=== PATIENT | male | born 1990 | race Caucasian/White ===

== ENCOUNTER 2016-08-11 11:29 | Emergency (ER) | payer MEDICAID ==
[2016-08-11 11:32] VITALS: BP 135/80
[2016-08-11] MEDS ORDERED: Tetan/Diph/Pertus SYR(Tdap)* 0.5 ML SYR(BOOSTRIX) use SYR IM ONE (12:23)
[2016-08-11] MEDS ORDERED: Acetaminophen TAB* 325 MG PO ONE (12:23)
[2016-08-11] MEDS ORDERED: Ondansetron ODT TAB* 4 MG PO ONE (12:23)
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
--- NOTE | 2016-08-11 12:43 | RAD ---
HISTORY: Trauma COMPARISONS: None TECHNIQUE: Multiple contiguous axial CT scans were obtained of the head without intravenous contrast. FINDINGS: HEMORRHAGE/INFARCT: There is no hemorrhage or acute infarct. MASSES/SHIFT: There is no mass or shift. EXTRA-AXIAL SPACES: There are no extra-axial fluid collections. SULCI AND VENTRICLES: The sulci and ventricles are normal in size and position for the patient's stated age. CEREBRUM: There are no focal parenchymal abnormalities. BRAINSTEM: There are no focal parenchymal abnormalities. CEREBELLUM: There are no focal parenchymal abnormalities. VESSELS: The vessels are grossly normal. PARANASAL SINUSES: The paranasal sinuses are clear. ORBITS: The orbits are unremarkable. BONES AND SOFT TISSUE: No bone or soft tissue abnormalities are noted. OTHER: None IMPRESSION: NO ACUTE INTRACRANIAL PATHOLOGY.
--- NOTE | 2016-08-11 12:46 | RAD ---
HISTORY: Facial trauma COMPARISONS: None TECHNIQUE: Multiple contiguous axial CT scans were obtained of the face without intravenous contrast, with coronal and sagittal multiplanar reformations. FINDINGS: The study is limited by patient motion artifact. BONES: There is no displaced fracture or dislocation. The orbital rim is intact. The zygomatic arch is intact. The pterygoid plates are intact. ORBITS: The globes are round. The optic nerves are symmetric. The extraocular musculature is normal. There is no post septal or intraconal inflammatory change. There is no retrobulbar hematoma. PARANASAL SINUSES: The septum is slightly to the left with left-sided spurring. There is extensive mucosal maxillary sinuses, ethmoid air cells, and sphenoid sinus. BRAIN AND SOFT TISSUE: Unremarkable. OTHER: None. IMPRESSION: NO FACIAL FRACTURE. EXTENSIVE SINUS MUCOSAL INFLAMMATORY DISEASE, WITHOUT AIR-FLUID LEVEL TO SUGGEST ACUTE SINUSITIS.
--- NOTE | 2016-08-11 13:24 | RAD ---
HISTORY: Left thumb injury COMPARISONS: None VIEWS: 3, Frontal, lateral, and oblique views of the first digit of the left hand FINDINGS: BONE DENSITY: Normal. BONES: There is no displaced fracture. JOINTS: There is no arthropathy. ALIGNMENT: There is no dislocation. SOFT TISSUES: Unremarkable. OTHER FINDINGS: None. IMPRESSION: NO ACUTE OSSEOUS INJURY. IF SYMPTOMS PERSIST, RECOMMEND REPEAT IMAGING.
== END 2016-08-11 13:35 | disposition home or self-care (01) ==
LOC: ED 11:29
DX: S01.01XA Laceration without foreign body of scalp, initial encounter (principal); S09.90XA Unspecified injury of head, initial encounter; M79.645 Pain in left finger(s); W22.8XXA Striking against or struck by other objects, initial encounter; Y93.9 Activity, unspecified; Y92.9 Unspecified place or not applicable; Y99.9 Unspecified external cause status
CPT/HCPCS: 12011; 70450; 70486; 90471; 90715; 99282; A9270-GY

== ENCOUNTER 2017-07-16 09:38 | Emergency (ER) | payer OTHER ==
[2017-07-16 11:25] LABS: ABS Basophils 0 10^3/ul (0-0.2); ABS Eosinophils 0.1 10^3/ul (0-0.6); ABS Lymphocytes 1.2 10^3/ul (1.0-4.8); ABS Monocytes 1.4 10^3/ul (0-0.8); ABS Neutrophils 11.6 10^3/ul (1.5-7.7); ABS Nucleated RBC 0 10^3/ul; Eosinophil % 0.6 % (0-6); Hematocrit 38 % (42-52); Hemoglobin 12.8 g/dl (14.0-18.0); Lymphocyte % 8.6 % (25-47); Mean Corpuscular HGB Conc 34 g/dl (31-36); Mean Corpuscular Hemoglobin 31 pg (27-31); Mean Corpuscular Volume 93 fL (80-94); Mean Platelet Volume 9.6 um3 (7.4-10.4); Nucleated Red Blood Cells % 0.2; Platelet Count 204 10^3/ul (150-450); Red Blood Count 4.11 10^6/ul (4.0-5.4); Red Cell Distribution Width 13 % (10.5-15); White Blood Count 14.4 10^3/ul (3.5-10.8)
[2017-07-16 11:48] LABS: EGFR Non-African American 147.1 (>60)
[2017-07-16] MEDS ORDERED: Lidocaine 1% INJ* 10 MG/ML 30 ML SDV INJ ONE (12:35)
[2017-07-16 13:22] VITALS: BP 119/76
--- NOTE | 2017-07-16 17:03 | ED ---
Skin Complaint - HPI Summary HPI Summary: Patient is a 26-year-old IV heroin drug user with a history of hepatitis C presenting to the ED with the chief complaint of abdominal abscess with scab and right temporal abscess with scab. He states the symptoms have been present 2 weeks but feels they may be worsening. There is some erythema and warmth around the abdominal skin scab. He states he has been draining some white purulent discharge to the area over the past several days and the area continues to scab over. He is concerned about syphilis. He has never had anything like this before. He denies any weakness, fatigue, headache. He denies any fevers, sweats, chills. He is otherwise feeling well. Last heroin use this morning. - History of Current Complaint Chief Complaint: EDRashSkinAbscess Time Seen by Provider: 07/16/17 09:58 Stated Complaint: RASH Hx Obtained From: Patient Onset/Duration: Started Weeks Ago Skin Exposure Onset/Duration: Weeks Ago Timing: Lasting Weeks Onset Severity: Moderate Current Severity: Moderate Pain Intensity: 1 Pain Scale Used: 0-10 Numeric Skin Location: Discrete - abdomen and R temporal area Character: Redness, Raised, Painful Aggravating Symptom(s): Nothing Alleviating Symptom(s): Nothing - Allergy/Home Medications Allergies/Adverse Reactions: Allergies Allergy/AdvReac Type Severity Reaction Status Date / Time MS Erythromycin Allergy Anaphylatic Verified 08/10/12 04:22 [Erythromycin] Shock MS Sulfa Drugs [Sulfa Drugs] Allergy Difficulty Verified 08/10/12 04:23 Breathing/Wheezing Home Medications: Home Medications Divalproex DR TAB(*) [Depakote DR TAB(*)] 250 mg PO DAILY 07/16/17 [History Confirmed 07/16/17] PMH/Surg Hx/FS Hx/Imm Hx Previously Healthy: Yes Endocrine/Hematology History: Denies: Hx Anticoagulant Therapy Respiratory History: Denies: Hx Asthma - Immunization History Hx Pertussis Vaccination: No Immunizations Up to Date: Unable to Obtain/Confirm Infectious Disease History: No Infectious Disease History: Denies: Traveled Outside the [place] in Last 30 Days - Family History Known Family History: Negative: Cardiac Disease - Social History Occupation: Unemployed Lives: Alone Alcohol Use: Rare Hx Substance Use: Yes Substance Use Type: Reports: Heroin, Marijuana Hx Tobacco Use: Yes Smoking Status (MU): Light Every Day Tobacco Smoker Review of Systems Constitutional: Negative Negative: Fever, Chills, Fatigue, Skin Diaphoresis Negative: Palpitations, Chest Pain Negative: Shortness Of Breath, Cough Negative: Abdominal Pain, Vomiting, Nausea Genitourinary: Negative Positive: no symptoms reported, see HPI Negative: Arthralgia, Myalgia Positive: Other - 2 abscess with scabs to the abdomena and R forehead Neurological: Negative All Other Systems Reviewed And Are Negative: Yes Physical Exam Triage Information Reviewed: Yes Vital Signs On Initial Exam: Initial Vitals Temp Pulse Resp BP Pulse Ox 99.5 F 103 20 136/83 100 07/16/17 09:45 07/16/17 09:45 07/16/17 09:45 07/16/17 09:45 07/16/17 09:45 Vital Signs Reviewed: Yes Appearance: Positive: Well-Appearing, No Pain Distress, Well-Nourished Skin: Positive: Warm, Skin Color Reflects Adequate Perfusion, Other - Left area of the mid abdomen with a 3 x 3 cm erythematous and warm area with a scab to the center without drainage; right forehead with a 2 x 1.5 cm erythematous without warm area with a scab to the Center without purulent drainage, swelling noted Head/Face: Positive: Normal Head/Face Inspection Eyes: Positive: EOMI, DAMIAN, Conjunctiva Clear Neck: Positive: Supple, No Lymphadenopathy Respiratory/Lung Sounds: Positive: Clear to Auscultation, Breath Sounds Present Cardiovascular: Positive: RRR, Pulses are Symmetrical in both Upper and Lower Extremities Musculoskeletal: Positive: Normal, Strength/ROM Intact Neurological: Positive: Speech Normal Psychiatric: Positive: Normal, Affect/Mood Appropriate AVPU Assessment: Alert Diagnostics - Vital Signs Vital Signs Temp Pulse Resp BP Pulse Ox 07/16/17 13:22 99.7 F 95 18 119/76 96 07/16/17 13:18 99 119/76 96 07/16/17 12:28 89 116/66 97 07/16/17 12:00 89 97 07/16/17 11:00 90 96 07/16/17 10:28 98 123/72 97 07/16/17 10:00 100 96 07/16/17 09:58 100 130/86 96 07/16/17 09:57 102 96 07/16/17 09:45 99.5 F 103 20 136/83 100 - Laboratory Lab Results: Lab Results 07/16/17 07/16/17 07/16/17 Range/Units 11:15 11:15 11:15 WBC 14.4 H (3.5-10.8) 10^3/ul RBC 4.11 (4.0-5.4) 10^6/ul Hgb 12.8 L (14.0-18.0) g/dl Hct 38 L (42-52) % MCV 93 (80-94) fL MCH 31 (27-31) pg MCHC 34 (31-36) g/dl RDW 13 (10.5-15) % Plt Count 204 (150-450) 10^3/ul MPV 9.6 (7.4-10.4) um3 Neut % (Auto) 80.7 (38-83) % Lymph % (Auto) 8.6 L (25-47) % [place] % (Auto) 9.8 H (0-7) % Eos % (Auto) 0.6 (0-6) % Baso % (Auto) 0.3 (0-2) % Absolute Neuts (auto) 11.6 H (1.5-7.7) 10^3/ul Absolute Lymphs (auto) 1.2 (1.0-4.8) 10^3/ul Absolute Monos (auto) 1.4 H (0-0.8) 10^3/ul Absolute Eos (auto) 0.1 (0-0.6) 10^3/ul Absolute Basos (auto) 0 (0-0.2) 10^3/ul Absolute Nucleated RBC 0 10^3/ul Nucleated RBC % 0.2 Sodium 133 L (139-145) mmol/L Potassium 4.2 (3.5-5.0) mmol/L Chloride 97 L (101-111) mmol/L Carbon Dioxide 28 (22-32) mmol/L Anion Gap 8 (2-11) mmol/L BUN 11 (6-24) mg/dL Creatinine 0.66 L (0.67-1.17) mg/dL Est GFR ( Amer) 189.1 (>60) Est GFR (Non-Af Amer) 147.1 (>60) BUN/Creatinine Ratio 16.7 (8-20) Glucose 96 (70-100) mg/dL Calcium 9.6 (8.6-10.3) mg/dL Total Bilirubin 0.90 (0.2-1.0) mg/dL AST 62 H (13-39) U/L ALT 154 H (7-52) U/L Alkaline Phosphatase 86 (34-104) U/L Total Protein 7.2 (6.4-8.9) g/dL Albumin 4.1 (3.2-5.2) g/dL Globulin 3.1 (2-4) g/dL Albumin/Globulin Ratio 1.3 (1-3) HIV 1&2 Antibody Nonreactive (Nonreactive) Result Diagrams: 07/16/17 11:15 07/16/17 11:15 Lab Statement: Any lab studies that have been ordered have been reviewed, and results considered in the medical decision making process. Course/Dx - Course Course Of Treatment: The patient is evaluated for 2 abscess scabs one to his abdomen and one to his right frontal temporal area of his forehead. Symptoms have been present 2 weeks. He denies fevers, sweats, chills. Labs obtained which show of 14.4 white blood cell count. Otherwise stable other than liver enzymes elevated, which are consistent with hepatitis C. He has never had an infection like this before. He denies injection into the sites. He states he only injects into his arms and there is no other lesions present. Track leblanc appear to his arms. The area to his abdomen is provided local anesthetic after thorough cleaning and small scab was taken to express underlying purulent fluid. This was sent to the lab. Patient is started on Bactrim for a possible MRSA contaminated due to IV drug use. Because he is otherwise stable and afebrile, patient will be discharged home with a follow-up in 2 days with me in the urgent care. He is okay with this plan at discharge and will return to the ED for any worsening or changing symptoms. If he is unable to get to the urgent care, he will come back to the ED. - Diagnoses Provider Diagnoses: Abscess Discharge - Sign-Out/Discharge Documenting (check all that apply): Discharge/Admit/Transfer - Discharge Plan Condition: Stable Disposition: HOME Prescriptions: Sulfamethox/Trimethoprim DS* [Bactrim DS 800/160 TAB*] 1 tab PO BID #14 tab MDD 2 Patient Education Materials: Abscess (ED) Referrals: No Primary Care Phys,NOPCP [Primary Care Provider] - Additional Instructions: Bactrim twice daily x 7 days For any worsening or changing symptoms - return to the ED You may also see me in [facility] on 07/18/17 for a wound re-check - Billing Disposition and Condition Condition: STABLE Disposition: HOME
== END 2017-07-16 13:23 | disposition home or self-care (01) ==
LOC: ED 09:38
DX: L02.01 Cutaneous abscess of face (principal); F17.210 Nicotine dependence, cigarettes, uncomplicated
CPT/HCPCS: 36415; 80053; 85025; 86592; 86703; 87070; 87077; 87184; 87186; 87205; 87640; 87641; 96374; 99282

== ENCOUNTER 2017-07-18 11:35 | Emergency (ER) | payer OTHER ==
[2017-07-18] MEDS ORDERED: cefTRIAXone(*) 1 GM in NS 0.9% 50 ML* 50 ML IVPB ONE (12:36)
[2017-07-18 12:57] VITALS: BP 131/74
[2017-07-18] MEDS ORDERED: cefTRIAXone VIAL(*) 1,000 MG VIAL IM ONE (12:57)
[2017-07-18] MEDS ORDERED: Lidocaine 1% MPF* 2 ML VIAL INJ ONE (13:06)
--- NOTE | 2017-07-18 14:13 | UC ---
Skin Complaint HPI - HPI Summary HPI Summary: Patient presents to the with a wound recheck. He states the Bactrim has been improving the erythema and warmth around the 2 wounds. He was seen in the ED 2 days ago by myself and was asked for him to return to the urgent care for me to recheck his wounds and give him results of his culture as well as his GC/ Chlamydia and syphilis. Continues to deny any fevers, sweats, chills. See note below from 2 days ago: Patient is a 26-year-old IV heroin drug user with a history of hepatitis C presenting to the ED with the chief complaint of abdominal abscess with scab and right temporal abscess with scab. He states the symptoms have been present 2 weeks but feels they may be worsening. There is some erythema and warmth around the abdominal skin scab. He states he has been draining some white purulent discharge to the area over the past several days and the area continues to scab over. He is concerned about syphilis. He has never had anything like this before. He denies any weakness, fatigue, headache. He denies any fevers, sweats, chills. He is otherwise feeling well. Last heroin use this morning. - History of Current Complaint Chief Complaint: UCSkin Time Seen by Provider: 07/18/17 11:42 Stated Complaint: SKIN ISSUE Hx Obtained From: Patient Onset/Duration: Gradual Onset Skin Exposure Onset/Duration: Weeks Ago Timing: Constant Onset Severity: Mild Current Severity: Mild Pain Intensity: 0 Pain Scale Used: 0-10 Numeric Aggravating Factor(s): Nothing Alleviating Factor(s): Nothing Associated Signs & Symptoms: Positive: Negative Related History: Alcohol/Drug intoxication - Allergy/Home Medications Allergies/Adverse Reactions: Allergies Allergy/AdvReac Type Severity Reaction Status Date / Time erythromycin base Allergy Hives Verified 07/18/17 12:58 [From Erythrocin] Review of Systems Constitutional: Negative Skin: Other - Continues to have a 0.7 cm lesion/ulcer to the left abdomen without surrounding erythema, scab to the right forehead without surrounding erythema appears to be improving since 2 days ago Respiratory: Negative Cardiovascular: Negative Motor: Negative Neurovascular: Negative Neurological: Negative Psychological: Negative Is Patient Immunocompromised?: No All Other Systems Reviewed And Are Negative: Yes PMH/Surg Hx/FS Hx/Imm Hx Previously Healthy: Yes Other History Of: Hepatitis C Negative For: Anticoagulant Therapy - Surgical History Surgical History: None - Family History Known Family History: Negative: Cardiac Disease - Social History Occupation: Unemployed Lives: Alone Alcohol Use: Rare Substance Use Type: Heroin, Marijuana Smoking Status (MU): Light Every Day Tobacco Smoker Physical Exam Triage Information Reviewed: Yes Appearance: Well-Appearing, No Pain Distress, Well-Nourished Vital Signs: Initial Vital Signs Temp 99 F 07/18/17 12:54 Pulse 85 07/18/17 12:54 Resp 15 07/18/17 12:54 BP 131/74 07/18/17 12:54 Pulse Ox 100 07/18/17 12:54 Vital Signs Reviewed: Yes Eye Exam: Normal Eyes: Positive: Conjunctiva Clear Neck exam: Normal Neck: Positive: Supple, Nontender, No Lymphadenopathy Respiratory Exam: Normal Respiratory: Positive: Chest non-tender, Lungs clear Cardiovascular Exam: Normal Cardiovascular: Positive: RRR Musculoskeletal Exam: Normal Musculoskeletal: Positive: Strength Intact Neurological Exam: Normal Neurological: Positive: Alert Psychological Exam: Normal Psychological: Positive: Normal Response To Family Skin: Positive: Other - Continues to have a 0.7 cm lesion/ulcer to the left abdomen without surrounding erythema, scab to the right forehead without surrounding erythema appears to be improving since 2 days ago Course/Dx - Course Course Of Treatment: Evaluated patient 2 days after initial treatment of Bactrim. Wound cultures were sent the time and today show strep pyogenes. Rapid strep throat culture obtained which is positive. I have discussed the case with Dr. Howell who suggests 1g Rochephin in addition to specified antibiotics. Clindamycin 300 mg 4 times daily 7 days is given. He will discontinue Bactrim. He remains afebrile and shows no other signs of septicemia. He is given strict return precautions as he is immunocompromised and strep pyogenes has a high risk for septicemia, specifically in IV drug users. - Diagnoses Provider Diagnoses: Strep Pyogenes/ Skin and throat Discharge - Sign-Out/Discharge Documenting (check all that apply): Discharge/Admit/Transfer - Discharge Plan Condition: Stable Disposition: HOME Prescriptions: Clindamycin Cap(NF) [Clindamycin Cap 300 mg Cap(NF)] 300 mg PO Q6H #28 cap Patient Education Materials: Strep Throat (ED) Referrals: No Primary Care Phys,NOPCP [Primary Care Provider] - Additional Instructions: Clindamycin 300 mg 4 times daily 7 days If he develop fever, sweats, chills or any other worsening symptoms, return to the ED immediately - Billing Disposition and Condition Condition: STABLE Disposition: HOME Images Head: 1 - 0.5 cm scabbed lesion Front/Back of Body, Lg ([place]): 1 - 0.7 cm ulcerated lesion
== END 2017-07-18 21:32 | disposition home or self-care (01) ==
LOC: UCEAST 11:35
DX: L02.211 Cutaneous abscess of abdominal wall (principal); L02.01 Cutaneous abscess of face; J02.0 Streptococcal pharyngitis; Z88.1 Allergy status to other antibiotic agents; F17.210 Nicotine dependence, cigarettes, uncomplicated
CPT/HCPCS: 87651; 99201; G0463; J0696

== ENCOUNTER 2017-08-01 19:52 | Emergency (ER) | payer OTHER ==
[2017-08-01] MEDS ORDERED: LORazepam TAB(*) 1 MG PO ONE (21:26)
[2017-08-01] MEDS ORDERED: LORazepam TAB(*) 1 MG ONE (21:44)
[2017-08-01 21:57] LABS: ABS Basophils 0 10^3/ul (0-0.2); ABS Eosinophils 0 10^3/ul (0-0.6); ABS Lymphocytes 1.6 10^3/ul (1.0-4.8); ABS Monocytes 0.6 10^3/ul (0-0.8); ABS Neutrophils 5.8 10^3/ul (1.5-7.7); ABS Nucleated RBC 0 10^3/ul; Eosinophil % 0.1 % (0-6); Hematocrit 45 % (42-52); Hemoglobin 15.3 g/dl (14.0-18.0); Lymphocyte % 19.6 % (25-47); Mean Corpuscular HGB Conc 34 g/dl (31-36); Mean Corpuscular Hemoglobin 32 pg (27-31); Mean Corpuscular Volume 93 fL (80-94); Mean Platelet Volume 9.6 um3 (7.4-10.4); Nucleated Red Blood Cells % 0.1; Platelet Count 264 10^3/ul (150-450); Red Blood Count 4.79 10^6/ul (4.0-5.4); Red Cell Distribution Width 13 % (10.5-15)
[2017-08-01 22:22] LABS: EGFR Non-African American 135.2 (>60)
[2017-08-01] MEDS ORDERED: Al Hydrox/Mg Hydrox/Simet LIQ* 30 ML UDC PO ONE (23:42)
[2017-08-01] MEDS ORDERED: Lidocaine 2% VISCOUS* 15 ML UDC PO ONE (23:42)
[2017-08-02 01:53] VITALS: BP 127/70
--- NOTE | 2017-08-02 06:27 | ED ---
Massimo Cunningham Rebecca, scribed for Mesfin Palomo MD on 08/01/17 at 2128 . Substance Abuse/Use - HPI Summary HPI Summary: Pt is a 26 y/o M who presents to ED s/p LSD ingestion. Pt reports ingesting the drug between 1100 and [address] his [address] to work, stating "it was an accident." Currently, the pt c/o central CP described as "like I ate something peppery," general malaise, and difficulty focusing. Denies SI, HI, CANO, blurred vision. No PMHx GERD. - History Of Current Complaint Chief Complaint: EDSubstanceAbuse Stated Complaint: CONFUSION Time Seen by Provider: 08/01/17 21:09 Hx Obtained From: Patient Ingestion History: Type/Name Of Drug - LSD, Approximate Time Of Ingestion - 1100 -1300 Overdose Characteristics: Oral Timing Of Abuse: Binge Use Aggravating Factor(s): Nothing Alleviating Factor(s): Nothing Associated Signs And Symptoms: Chest Pain, Other: - General malaise and difficulty focusing - Allergies/Home Medications Allergies/Adverse Reactions: Allergies Allergy/AdvReac Type Severity Reaction Status Date / Time erythromycin base Allergy Hives Verified 07/18/17 12:58 [From Erythrocin] PMH/Surg Hx/FS Hx/Imm Hx Endocrine/Hematology History: Denies: Hx Anticoagulant Therapy Respiratory History: Denies: Hx Asthma GI History: Denies: Hx Gastroesophageal Reflux Disease Psychiatric History: Reports: Hx Bipolar Disorder Infectious Disease History: No Infectious Disease History: Denies: Traveled Outside the [place] in Last 30 Days - Family History Known Family History: Negative: Cardiac Disease - Social History Alcohol Use: Rare Hx Substance Use: Yes Substance Use Type: Reports: Heroin, Other Substance Use Comment - Amount & Last Used: LSD Hx Tobacco Use: Yes Smoking Status (MU): Current Some Day Smoker Review of Systems Positive: Other - s/p LSD ingestion, general malaise Positive: Other - Difficulty focusing. Negative: Blurred Vision Positive: Chest Pain Negative: Headache Positive: Other - NEGATIVE: SI, HI All Other Systems Reviewed And Are Negative: Yes Physical Exam - Summary Physical Exam Summary: GENERAL: ~Patient is a well developed and nourished M who is lying comfortable in the stretcher. ~Patient is not in any acute respiratory distress. HEAD AND FACE: Normocephalic EYES: Pupils are dilated, EOMI x 2. EARS: Hearing grossly intact. MOUTH: Oropharynx within normal limits. NECK: Supple, trachea is midline, no adenopathy, no JVD, no carotid bruit. CHEST: Symmetric, no tenderness at palpation LUNGS: Clear to auscultation bilaterally. No wheezing or crackles. CVS: Regular rate and rhythm, S1 and S2 present, no murmurs or gallops appreciated. ABDOMEN: Soft, non-tender. Bowel sounds are normal. No abdominal abnormal pulsations. EXTREMITIES: Full ROM in all major joints, no edema, no cyanosis or clubbing. NEURO: Alert and oriented x 3. No acute neurological deficits. Speech is normal and follows commands. SKIN: Dry and warm Triage Information Reviewed: Yes Vital Signs On Initial Exam: Initial Vitals Temp Pulse Resp BP Pulse Ox 98.2 F 98 16 141/76 99 08/01/17 20:01 08/01/17 20:01 08/01/17 20:01 08/01/17 20:01 08/01/17 20:01 Vital Signs Reviewed: Yes Diagnostics - Vital Signs Vital Signs Temp Pulse Resp BP Pulse Ox 08/01/17 21:00 81 23 100 08/01/17 20:58 131/79 08/01/17 20:01 98.2 F 98 16 141/76 99 - Laboratory Lab Results: Lab Results 08/01/17 Range/Units 20:07 Urine Opiates Screen Presumptive positive A (None Detect) Ur Barbiturates Screen None detected (None Detect) Ur Phencyclidine Scrn None detected (None Detect) Ur Amphetamines Screen Presumptive positive A (None Detect) U Benzodiazepines Scrn None detected (None Detect) Urine Cocaine Screen None detected (None Detect) U Cannabinoids Screen None detected (None Detect) Result Diagrams: 08/01/17 21:48 08/01/17 21:48 Lab Statement: Any lab studies that have been ordered have been reviewed, and results considered in the medical decision making process. - EKG 2125 Cardiac Rate: NL - 87 bpm EKG Rhythm: Sinus Rhythm EKG Interpretation: Incomplete RBBB, [address] elevation in V2, most likely YOCASTA Re-Evaluation - Re-Evaluation First Eval Re-Evaluation Time: 01:03 Change: Improved Comment: Pt is feeling much better after GI cocktail. Course/Dx - Course Assessment/Plan: Pt is a 26 y/o M who presents to ED c/o burning CP, general malaise and difficulty focusing s/p LSD ingestion. Denies SI, HI, CANO, blurred vision. He was given a GI cocktail because he continued to have epigastric burning and on re-evaluation is feeling much better. Pain is completely resolved. Will be D/C with Dx of substance abuse with Rx for Protonix. - Diagnoses Provider Diagnoses: Substance abuse Discharge - Sign-Out/Discharge Documenting (check all that apply): Discharge/Admit/Transfer - Discharge - Discharge Plan Condition: Stable Disposition: HOME Prescriptions: Pantoprazole TAB (NF) [Protonix TAB (NF)] 20 mg PO DAILY #30 tab Patient Education Materials: Polysubstance Abuse (ED) Referrals: No Primary Care Phys,NOPCP [Primary Care Provider] - [facility] [place] [facility] [Outside] Additional Instructions: RETURN TO ED FOR ANY RETURNING OR WORSENING SYMPTOMS. - Billing Disposition and Condition Condition: STABLE Disposition: HOME The documentation as recorded by the Massimo vaz Rebecca accurately reflects the service I personally performed and the decisions made by , Mesfin Palomo MD.
== END 2017-08-02 01:45 | disposition home or self-care (01) ==
LOC: ED 19:52
DX: F16.10 Hallucinogen abuse, uncomplicated (principal); R07.89 Other chest pain; R53.81 Other malaise; F31.9 Bipolar disorder, unspecified; Z88.1 Allergy status to other antibiotic agents; Z72.0 Tobacco use
CPT/HCPCS: 36415; 80053; 80307; 84484; 85025; 93005; 99284; A9270-GY